=== PATIENT | male | born 1980 | race African-American/Black ===

== ENCOUNTER 2023-05-21 14:17 | Emergency (ER) | payer MEDICAID ==
[~2023-05-21] VITALS: Ht 180.3 cm; Wt 67.1 kg
[2023-05-21 14:22] VITALS: BP_SYST 130; PULSE 69; RESP 16; TEMP 97.7; O2SAT 97
[2023-05-21] MEDS ORDERED: MAG-AL HYDROX/SIMETH 30 ML UDC PO ONE (15:00)
[2023-05-21] MEDS ORDERED: LIDOCAINE VISCOUS 2%, 15 ML UDC MM ONE (15:00)
[2023-05-21 15:15] LABS: BASOPHILS % (AUTO) 0.5 % (0.0-2.0); EOSINOPHILS # (AUTO) 1.1 K/uL (0.0-0.4); EOSINOPHILS % (AUTO) 12.7 % (0.0-4.0); HEMATOCRIT 33.9 % (36-54); HEMOGLOBIN 11.1 g/dL (14.0-18.0); LYMPHOCYTES # (AUTO) 2.4 K/uL (1.0-5.5); LYMPHOCYTES % (AUTO) 26.9 % (20.5-51.5); MEAN CORPUSCULAR HEMOGLOBIN 28 pg (27-31); MEAN CORPUSCULAR HGB CONC 33 % (32-36); MEAN CORPUSCULAR VOLUME 84 fL (79.0-98.0); MONOCYTES # (AUTO) 0.6 K/uL (0.0-1.0); MONOCYTES % (AUTO) 6.7 % (1.7-9.3); NEUTROPHILS # (AUTO) 4.8 K/uL (1.8-7.7); NEUTROPHILS % (AUTO) 53.2 % (40.0-70.0); PLATELET COUNT (AUTO) 324 K/uL (130-430); RED BLOOD CELL COUNT(AUTO) 4.05 MIL/uL (4.2-6.2); RED CELL DISTRIBUTION WIDTH 13.5 % (9.0-15.0)
[2023-05-21 15:46] LABS: ANION GAP 6 (5-15); CARBON DIOXIDE 27 mmol/L (23-29); CHLORIDE 100 mmol/L (98-107); CREATININE 1.02 mg/dL (0.55-1.30); GFR AFRICAN AMERICAN 104 mL/min (>90); GLUCOSE 101 mg/dL (74-106); POTASSIUM 4.1 mmol/L (3.5-5.1); SODIUM SERUM 133 mmol/L (136-145); UREA NITROGEN, BLOOD 21 mg/dL (8-21)
[2023-05-21 15:47] LABS: GFR NON AFRICAN-AMERICAN 86 mL/min (>90)
[2023-05-21 15:54] LABS: ALANINE AMINOTRANSFERASE 24 U/L (12-78); ASPARTATE AMINOTRANSFERASE 17 U/L (10-37); LIPASE 43 U/L (16-77); TOTAL BILIRUBIN 0.2 mg/dL (0.0-1.0); TOTAL PROTEIN, SERUM 7.8 g/dL (6.4-8.3)
[2023-05-21] MEDS ORDERED: ANT30 PO (16:28)
[2023-05-21] MEDS ORDERED: FAMO40TA71 PO (16:28)
[2023-05-21 16:42] VITALS: BP_SYST 119; PULSE 75; RESP 13; TEMP 97.7; O2SAT 97
== END 2023-05-21 16:40 | disposition home or self-care (01) ==
LOC: SED 14:17
DX: K21.9 Gastro-esophageal reflux disease without esophagitis (principal); R07.89 Other chest pain; R06.02 Shortness of breath; R11.0 Nausea; I10 Essential (primary) hypertension; E78.5 Hyperlipidemia, unspecified; F17.200 Nicotine dependence, unspecified, uncomplicated; Z79.899 Other long term (current) drug therapy
CPT/HCPCS: 99285; 71045; 80053; 83880; 83690; 85025; 84484; 36415; 93005; J2001